=== PATIENT | male | born 1995 | race African-American/Black ===

== ENCOUNTER 2018-08-04 13:38 | Emergency (ER) | payer OTHER ==
[2018-08-04 14:01] LABS: BILIRUBIN,URINE NEGATIVE (NEGATIVE); GLUCOSE, URINE (UA) NEGATIVE (NEGATIVE); KETONES,URINE (UA) NEGATIVE (NEGATIVE); LEUKOCYTE ESTERASE, URINE NEGATIVE (NEGATIVE); NITRITE,URINE NEGATIVE (NEGATIVE); OCCULT BLOOD,URINE NEGATIVE (NEGATIVE); PH,URINE 7.5 PH (5.0-7.5); PROTEIN,URINE NEGATIVE (NEGATIVE); UROBILINOGEN,URINE 0.2 (NORMAL) E.U./dL (NORMAL)
[2018-08-04 14:04] LABS: CLARITY,URINE CLEAR (CLEAR)
--- NOTE | 2018-08-04 14:26 | ED Physician Documentation ---
History of Present Illness - Stated complaint Stated Complaint: FLU LIKE SX - Chief complaint Chief Complaint: General - History obtained from History obtained from: Patient, Family - History of Present Illness Timing: How many weeks ago (8), How many days ago (3) Pain level max: 0 Pain level now: 0 - Additonal information Additional information: 22-year-old male from [place] visiting [place] with history of seasonal asthma here with complain of sore neck with swollen glands the past 2 months but seem to have gotten worse the past 3 days as he now has night sweats and tactile fever. 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 denies: Back pain, Extremity pain Neurologic: denies: Generalized weakness Immunocompromised: denies: Immunocompromised PD PAST MEDICAL HISTORY - Past Medical History Past Medical History: No - Past Surgical History Past Surgical History: No - Present Medications Home Medications: Ambulatory Orders Medication Instructions Recorded Confirmed No Known Home Medications 08/04/18 08/04/18 - Allergies Allergies/Adverse Reactions: Allergies Allergy/AdvReac Type Severity Reaction Status Date / Time No Known Drug Allergies Allergy Verified 08/04/18 13:48 - Social History Does the pt smoke?: Yes Smoking Status: Current every day smoker Does the pt drink ETOH?: Yes - Immunizations Immunizations are current?: Yes PD ED PE NORMAL - Vitals Vital signs reviewed: Yes - General General: Alert and oriented X 3, No acute distress, Well developed/nourished - HEENT HEENT: Atraumatic, PERRL, Ears normal, Moist mucous membranes, Other (Enlarged tonsils with scant white exudate on the left but no erythema And nonkissing. No peritonsillar abscess. No posterior pharyngeal edema, erythema.) - Neck Neck: Supple, no meningeal sign, No bony TTP, Other (Left posterior cervical adenopathy, one Mildly tender to touch and about 3 mm in size, round shape. Right posterior hard round lesion about 0.25 cm that is nontender and nonfluctuant.) - Cardiac Cardiac: RRR, No murmur - Respiratory Respiratory: No respiratory distress, Clear bilaterally - Abdomen Abdomen: Normal bowel sounds, Soft, Non tender, Non distended - Derm Derm: Warm and dry - Extremities Extremities: No deformity, No tenderness to palpate, Normal ROM s pain, No edema - Neuro Neuro: Alert and oriented X 3 - Psych Psych: Normal mood, Normal affect Results - Vitals Vitals: Vital Signs - 24 hr 08/04/18 13:43 Temperature 37.3 C Heart Rate 74 Respiratory 16 Rate Blood Pressure 149/78 H O2 Saturation 100 Oxygen O2 Source Room air - Labs Labs: Laboratory Tests 08/04/18 08/04/18 08/04/18 13:50 13:58 Unknown Urine Color YELLOW Urine Clarity CLEAR Urine pH 7.5 Ur Specific [place] 1.020 Urine Protein NEGATIVE Urine Glucose (UA) NEGATIVE Urine Ketones NEGATIVE Urine Occult Blood NEGATIVE Urine Nitrite NEGATIVE Urine Bilirubin NEGATIVE Urine Urobilinogen 0.2 (NORMAL) Ur Leukocyte Esterase NEGATIVE Ur Microscopic Review NOT INDICATED Urine Culture Comments NOT INDICATED Influenza A (Rapid) Negative Influenza B (Rapid) Negative Group A Strep Rapid Negative PD MEDICAL DECISION MAKING - ED course Complexity details: re-evaluated patient, considered differential (Tonsillitis, pharyngitis, viral syndrome, adenopathy), d/w patient, d/w family ED course: 1513 patient inform of test results. Patient states will be staying here with significant other for the next few months. Instructed to follow-up with new primary doctor for reevaluation in a week and to get a TB skin test and a referral to an ENT to reevaluate his tonsils. And if his lymph nodes are still enlarged to get a referral for evaluation of the lymph nodes and possible biopsy. Patient's significant other inform me that as a child she was treated for tuberculosis. She always has a positive skin test so every year she gets a chest x-ray which she had not had been negative.Patient is in no acute distress and nontoxic appearing. Will be discharge Departure - Departure Disposition: 01 Home, Self Care Clinical Impression: Lymphadenopathy of left cervical region, Tonsillitis with exudate Condition: Stable Instructions: ED Cervical Adenitis No Abx Tx, ED Tonsillitis Comments: Call your new primary healthcare provider for reevaluation of your lymph nodes and night sweats. Get a TB skin test done. Get a referral to an ENT to reevaluate your enlarged tonsils. If worse return to the emergency room.
--- NOTE | 2018-08-04 14:35 | XRAY Report ---
Reason: SOA Procedure Date: 08/04/2018 Accession Number: [id number] / [id number] Procedure: XR - Chest 2 View X-Ray CPT Code: 52395 FULL RESULT: EXAM: CHEST RADIOGRAPHY EXAM DATE: 08/04/2018 02:12 PM. CLINICAL HISTORY: Short of breath. Asthma. COMPARISON: None. TECHNIQUE: 2 views. FINDINGS: Lungs/Pleura: No localized infiltrate, consolidation, effusion, or pneumothorax. Mediastinum: Heart and mediastinal contours are unremarkable. Upper lobe vessels not distended. Other: None. IMPRESSION: Normal 2-view chest radiography. [facility]
[2018-08-04 15:26] VITALS: BP 132/76
== END 2018-08-04 15:31 | disposition home or self-care (01) ==
LOC: ED 13:38
DX: R59.1 Generalized enlarged lymph nodes (principal); J03.90 Acute tonsillitis, unspecified; F17.200 Nicotine dependence, unspecified, uncomplicated
CPT/HCPCS: 71046; 81001; 81003; 87070; 87086; 87275; 87276; 87430; 99283

== ENCOUNTER 2018-10-08 00:31 | Outpatient (CLI) | payer SELFPAY | END 2018-10-08 00:32 | disposition EMS.NT | LOC: EMS 00:31 | PROVIDERS: ATTEND Surgery | DX: Z03.89 Encounter for observation for other suspected diseases and conditions ruled out (principal) ==